=== PATIENT | female | born 1975 | race Caucasian/White ===

== ENCOUNTER → 2018-04-15 09:49 | Outpatient (CLI) | payer OTHER, SELFPAY ==
--- NOTE | 2018-04-15 09:54 | VDLE_ITS ---
Reason For Study: PVD, lymphedema RIGHT LEFT CFV is compressible, spontaneous, phasic, CFV is compressible, spontaneous, phasic, competent and demonstrates normal competent, and demonstrates normal augmentation. augmentation. FV is compressible, spontaneous, phasic, FV is compressible, spontaneous, phasic, competent and demonstrates normal competent and demonstrates normal augmentation. augmentation. POP V is compressible, spontaneous, phasic, POP V is compressible, spontaneous, phasic, competent and demonstrates normal competent and demonstrates normal augmentation. augmentation. T/P Trunk is compressible. T/P Trunk is compressible. PTV is compressible. LT PerV is compressible. RT PerV is compressible. PTV was not visualized. SFJ is competent. GSV is competent. SFJ is competent. SSV is competent. GSV is competent. Procedure SSV was not visualized. Exam performed in department. The study was technically difficult. Due to morbid obesity. Interpretation Summary Deep veins of the lower extremities are bilaterally patent and compressible segmentally. There is no evidence of deep vein thrombosis on either side. Valvular competence appears intact within the proximal deep venous systems bilaterally. The greater saphenous veins appear bilaterally patent and compressible segmentally. The left posterior tibial vein was not visualized. Sapheno-femoral junctions are bilaterally competent . Valvular competence appears to be intact segmentally within the greater saphenous veins bilaterally. The right small saphenous vein is patent and competent. The left small saphenous vein was not visualized. Ordering Physician: JESUSITA MARQUEZ Referring Physician: Jesusita Marquez Performed By: Karla Alba, LEE ANN, RVT
== END ==
PROVIDERS: Family Provider Nurse Practitioner; PCP Nurse Practitioner; Visit Provider Nurse Practitioner
DX: I73.9 Peripheral vascular disease, unspecified (principal); I89.0 Lymphedema, not elsewhere classified
CPT/HCPCS: 93970

== ENCOUNTER 2018-06-16 16:00 | Outpatient (RCR) | payer OTHER, SELFPAY ==
--- NOTE | 2018-05-18 15:19 | HP.OTEVAL ---
Patient's Visit Information PITER FRANCIS is a 42 year old F, referred to Occupational Therapy by Zena Everett NP-, with a diagnosis of BLE lymphedema. Date of Evaluation: 05/17/18 Occupational Therapist: Sasha Escalona, OTR/L, CHT - Subjective Subjective: PT states she has had swelling in BLE in 2011. pt states this past year she noticed her LE did become more uncomfortable and limiting her mobility. pt states she does sleep in a recliner. pt states she has tried compression socks in the past but they did not fit her well and she stopped using them. Pt arrives to session with bibi wraps to BLE. pt states she struggles with keeping wraps up. pt would like to know other alternatives to LE lymphedema mtg. - Pain BLE 8 Pain Intensity Range: 3, 8 - Lymphedema (Circumferential Measure) Mid-foot: right 27cm left 26.5 cm Ankle: right 33cm left 35cm Lower calf: right 47cm left 54cm Largest calf: right 66cm left 67cm Below knee: right 57cm left 58cm - Lower Limb Functional Index Lower Extremity Functional Score: 28 - Goals Demonstrate adequate knowledge of self-bangaging by 1st week: Yes Demonstrate adequate knowledge of self-massage by 2nd week: Yes Demonstrate adequate knowledge skin care/prec by 2nd week: Yes Demonstrate adequate knowledge therapeutic exercises by d/c: Yes Voice need to replace compression garment every 4-6mo by dc: Yes - Rehabilitation General Assessment: Pt demo with LE edema needing compression alternatives as she has used compression socks in the past but they did not help. Pt demo need for skilled OT 1 x week for 3 weeks. today Therapist ed. pt on lymphedema, lymphedema ex. PT ed. on skin care and precaustions. pt also ed on benefical ex. to stimulate circulation. Due to pts struggle with compression garments and wraps to her LE pt would benefit from use of lymphedema pump to assist pt in mtg of LE lymphedema. Rehabilitation Potential: Fair - Anticipated Interventions Anticipated Interventions: Education re Life-long lymphedema Management, Education re Self-Bandaging Techniques, Education re Skin Care and Precautions, Education re Self Massage Techniques, Education re Correct Donning Tech,Care&Wearing Sched Comp Garments, Home Program - Visit Plan Frequency: 1x/Week Duration: 3 Weeks TEXT: Thank you for the opportunity to evaluate your patient. For Medicare and Medicare HMO plans, please review the plan of care and approve it. It will need to be FAXED BACK to us at [phone] for Medicare purposes. Please let me know if there are questions or concerns regarding this plan of care. Physician Signature: Date:
--- NOTE | 2018-08-03 11:12 | HP.OT.NRP ---
HP - Discharge Summary - Patient Information PITER FRANCIS was seen in my office for initial evaluation on 05/17/18. The following Plan of Care was established for this patient: Initial Frequency: 1x/Week Initial Duration: 3 Weeks Plan: pt to call and let therapist know if she buys compression garment- and if she would like to learn self MLD. - Anticipated Interventions Anticipated Interventions: Education re Life-long lymphedema Management, Education re Self-Bandaging Techniques, Education re Skin Care and Precautions, Education re Self Massage Techniques, Education re Correct Donning Tech,Care&Wearing Sched Comp Garments, Home Program This patient was last seen in our office 06/16/18. Pertinent comments regarding their Occupational therapy will appear below: Pt was seen for 12 visits to be ed. on life long lymphedema mtg. pt was interested in circaid compression alternatives. pt was to call and let therapist know if she purcheased the garments and schedule an apt so therapist could ensure fit. pt has not done so at this time. due to timelapse in scheduled apt. pt is D/C at this time. At this point I will be discontinuing this patient from occupational therapy. I would be happy to see this patient again in the future if found appropriate by the physician. Thank you! Sasha Escalona, OTR/L, CHT
== END 2018-06-16 19:00 | disposition home or self-care (01) ==
LOC: OT 16:00
PROVIDERS: Family Provider Nurse Practitioner; PCP Nurse Practitioner; Visit Provider Nurse Practitioner
DX: I89.0 Lymphedema, not elsewhere classified (principal)
CPT/HCPCS: 97166; 97530